=== PATIENT | female | born 1955 | race Asian ===

== ENCOUNTER 2021-03-04 10:22 | Outpatient (CLI) | payer MEDICARE, SELFPAY ==
--- NOTE | ~2021-03-04 | US_ITS ---
EXAMINATION: US retroperitoneal comp EXAM DATE: 03/04/2021 10:57 INDICATION: N28.9 - Disorder of kidney and ureter, unspecified. TECHNIQUE: Multiple grayscale and Doppler images of the kidneys were obtained (by a technologist who performed the scan) and subsequently reviewed. Correlation is made to CT abdomen pelvis 05/23/2010. FINDINGS: Right kidney: There is normal contour and echogenicity. It measures 10.3 x 3.9 x 4.5 centimeters. T here are no focal renal lesions identified. There is no hydronephrosis. Left kidney: There is normal contour and echogenicity. It measures 10.2 x 3.6 x 5.4 centimeters. The re is 7 mm hyperechoic focus in the left kidney, nonspecific. Appearance most consistent with small a ngiomyolipoma, with a 5 mm fat density region seen on prior CT from 2010 which may correlate to this. Therefore not likely clinically significant finding. There is no hydronephrosis. Bladder unremarkable. IMPRESSION: 1. No hydronephrosis. 2. Small incidental left renal hyperechoic focus appearance most consistent with small angiomyolipom a. Reviewed, dictated and finalized at location B. GER ETHICS IMPRESSION: 1. No hydronephrosis. 2. Small incidental left renal hyperechoic focus appearance most consistent wi th small angiomyolipoma.
--- NOTE | ~2021-03-04 | XR_ITS ---
EXAMINATION: XR abdomen/kub 1V DATE: 03/04/2021 11:07 INDICATION: Left lower quadrant abdominal pain. TECHNIQUE: A supine view of the abdomen on 2 radiographs was obtained. COMPARISON: CT dated 05/19/2010 FINDINGS: Small to moderate amount of gas and stool scattered throughout the colon. There is also small amount of gas within a few nondilated loops of small bowel. No suspicious calcification is in the abdomen or pelvis. Lung bases are clear with elevation right hemidiaphragm. Heart size is normal. Bones are unr emarkable. IMPRESSION: 1. Normal bowel gas pattern. No evident urolithiasis. Reviewed, dictated and finalized at location A. INE MAINTENANCE SERVICER
[2021-03-04 11:48] LABS: Basophils Absolute Auto 0.1 K/mm3 (0.0-0.1); Basophils Percent Auto 1.3 % (0.2-1.2); Eosinophils Absolute Auto 0.1 K/mm3 (0-0.3); Eosinophils Percent Auto 1.3 % (0-4.4); Hematocrit 42.7 % (37.0-47.0); Hemoglobin 14.6 g/dL (12.0-15.0); Immature Granulocyte Absolute 0.02 K/mm3 (0.00-0.031); Immature Granulocyte Percent A 0.4 % (0-0.5); Lymphocytes Absolute Auto 1.96 K/mm3 (0.9-3.2); Lymphocytes Percent Auto 41.1 % (18.3-44.2); Mean Corpuscular HGB Conc 34.2 g/dl (32-36); Mean Corpuscular Hemoglobin 29.9 pg (26-34); Mean Corpuscular Volume 87.5 fl (80-100); Mean Platelet Volume 9.4 fl (7.4-10.4); Monocytes Absolute Auto 0.3 K/mm3 (0.1-0.6); Monocytes Percent Auto 6.1 % (2.6-8.5); Neutrophils Absolute Auto 2.4 K/mm3 (1.3-6.7); Neutrophils Percent Auto 49.8 % (45.5-73.1); Platelet Count Result 310 k/mm3 (150-375); Red Blood Count 4.88 M/mm3 (4.2-5.4); Red Cell Distribution Width 12.4 % (11.5-14.5); White Blood Count 4.8 K/mm3 (4.5-10.0)
[2021-03-04 12:21] LABS: Alanine Aminotransferase 50 U/L (4-35); Albumin Level 4.7 g/dL (3.5-5.1); Alkaline Phosphatase 90 U/L (38-126); Anion Gap 7 mmol/L (8-16); Aspartate Amino Transferase 39 U/L (14-36); Bilirubin,Total 0.8 mg/dL (0.2-1.3); Blood Urea Nitrogen 14 mg/dL (7-17); Calcium 9.2 mg/dL (8.4-10.2); Carbon Dioxide 27 mmol/L (22-30); Chloride 105 mmol/L (98-107); Cholesterol 242 mg/dL (0-200); Estimated Glomerular Filt Rate > 60; Glucose 111 mg/dL (65-110); HDL Direct 48 mg/dL; Potassium 3.9 mmol/L (3.4-5.0); Sodium 139 mmol/L (137-145); Triglycerides 222 mg/dL (<150)
[2021-03-04 12:32] LABS: LDL Cholesterol Direct 129 mg/dL
[2021-03-06 12:04] LABS: Hemoglobin A1C 5.7 % (<5.7)
== END 2021-03-04 10:23 | disposition home or self-care (01) ==
PROVIDERS: PCP Nurse Practitioner Family; Visit Provider Nurse Practitioner Family
DX: E78.5 Hyperlipidemia, unspecified (principal); N18.9 Chronic kidney disease, unspecified; R10.32 Left lower quadrant pain; K59.01 Slow transit constipation
CPT/HCPCS: 36415; 74018; 76770; 80053; 80061; 83036; 85025

== ENCOUNTER 2022-05-12 12:17 | Emergency (ER) | payer MEDICARE, SELFPAY ==
--- NOTE | ~2022-05-12 | XR_ITS ---
Left wrist Technique: PA, oblique, lateral, and ulnar deviation views were obtained. Clinical History: Pain Findings: No acute fracture or dislocation is seen. Osseous alignment is anatomic. Joint spaces are p reserved. Soft tissues are unremarkable. Impression: Unremarkable left wrist radiographs. Reviewed, dictated and finalized at location . Impression: Unremarkable left wrist radiographs.
[2022-05-12 12:24] VITALS: BP 125/59; PULSE 77; RESP 18; TEMP 36.6; O2SAT 98
--- NOTE | 2022-05-12 12:24 | ED.UPPEXIN ---
HPI - Extremity Injury (Upper) General Chief Complaint: Extremity Injury, Upper Stated Complaint: INJURED L WRIST Time Seen by Provider: 05/12/22 12:24 Source: patient and RN notes reviewed History of Present Illness HPI narrative: Patient is 66-year-old female presents to Urgent Care with her spouse with complaints of left wrist pain and swelling. Patient states that she slipped up the hill yesterday while at home and catching herself with her left hand. Patient states she has used ice for the swelling. Patient is right-hand dominant. Denies any other acute complaints or injuries from the fall. No other acute complaints. No acute distress noted. Patient and spouse aware of the plan of care. Some parts of this dictation were generated by voice recognition software and may contain typographical and/or grammatical inaccuracies. Related Data Home Medications Medication Instructions Recorded Confirmed multivitamin 1 tablet PO DAILY 01/03/19 11/17/21 cholecalciferol (vitamin D3) 50 50 mcg PO DAILY 03/27/21 11/17/21 mcg (2,000 unit) capsule garlic 1,000 mg capsule 1,000 mg PO DAILY 03/27/21 11/17/21 ascorbate calcium (vitamin C) 500 500 mg PO DAILY 04/16/21 11/17/21 mg tablet biotin 5 mg capsule 5 mg PO DAILY 04/16/21 11/17/21 Allergies Allergy/AdvReac Type Severity Reaction Status Date / Time alcohol Allergy Intermediate swelling & Verified 11/16/21 14:44 redness Review of Systems Review of Systems: CONSTITUTIONAL: Denies fever, chills, or sweats. EYES: Denies visual changes, redness, or discharge. ENT: Denies rhinorrhea, congestion, sore throat, or otalgia. CARDIOVASCULAR: Denies chest pain, palpitations, or edema. RESPIRATORY: Denies cough or dyspnea. GASTROINTESTINAL: Denies abdominal pain, nausea, vomiting, or diarrhea. GENITOURINARY: Denies dysuria or hematuria. SKIN: Denies rash or itching. MUSCULOSKELETAL: Reports of left wrist pain and swelling NEUROLOGIC: Denies headache, numbness, or weakness. All other systems reviewed are negative, except as documented in HPI. 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 There is no relevant family history pertinent to the patient complaint. Exam Narrative: GENERAL: This is a well-nourished, well-developed patient, in no apparent distress. HEAD: normocephalic, atraumatic. EYES: PERRL. Sclera clear/white. Vision is grossly intact. EARS: External ears normal, NOSE: External nose normal with no obvious nasal discharge, nares without redness, no rhinorrhea. THROAT: Mucous membranes moist NECK: Neck supple, SKIN: warm, intact with no suspicious lesions or rash, good texture and turgor. NEURO: awake, alert, and oriented to person, place and time. There were no obvious focal neurologic abnormalities. EXTREMITIES: Uetj-jo-plifsqkz edema noted to the dorsal aspect of the left wrist on the ulnar aspect without ecchymosis or obvious deformity. Positive strong left radial pulse with capillary refill less than
== END 2022-05-12 12:53 | disposition home or self-care (01) ==
PROVIDERS: Emergency Provider Nurse Practitioner Family
DX: S63.502A Unspecified sprain of left wrist, initial encounter (principal); W01.0XXA Fall on same level from slipping, tripping and stumbling without subsequent striking against object, initial encounter; E78.5 Hyperlipidemia, unspecified; K76.0 Fatty (change of) liver, not elsewhere classified; E55.9 Vitamin D deficiency, unspecified
CPT/HCPCS: 73110; 99213; G0463

== ENCOUNTER 2023-03-17 08:16 | Outpatient (CLI) | payer OTHER, SELFPAY ==
--- NOTE | ~2023-03-17 | US_ITS ---
Limited Abdominal Sonogram: Real-time sonographic imaging of the right upper quadrant was performed. Clinical History: Abnormal blood findings Findings: The liver appears echogenic, with no evidence of mass lesion or bile duct dilatation. Main portal vein demonstrates normal direction of flow. The gallbladder is well distended, and appears no rmal with no evidence of gallstone or wall thickening. The common bile duct measures 4 mm. The visua lized pancreas, aorta, and IVC are unremarkable. Impression: Diffuse fatty infiltration of liver. Reviewed, dictated and finalized at location M. N SERVICES PROFESSIONAL Impression: Diffuse fatty infiltration of liver.
== END 2023-03-17 08:17 | disposition home or self-care (01) ==
PROVIDERS: PCP Family Medicine; Visit Provider Physician Assistant
DX: K76.0 Fatty (change of) liver, not elsewhere classified (principal); R79.89 Other specified abnormal findings of blood chemistry
CPT/HCPCS: 76705

== ENCOUNTER 2023-06-30 15:08 | Outpatient (CLI) | payer OTHER, SELFPAY ==
--- NOTE | ~2023-06-30 | XR_ITS ---
XR lumbar spine min 4V DATE: 06/30/2023 15:31 INDICATION: Hip pain on the left TECHNIQUE: AP, lateral, coned lateral lumbosacral and bilateral oblique views COMPARISON: None FINDINGS: Normal alignment of the lumbar spine. No fracture or bone destruction, spondylolysis or spo ndylolisthesis. Lumbar and lumbosacral interspaces are well preserved. There is slight degenerative s purring. The sacroiliac joints are intact. IMPRESSION: Slight degenerative spurring Reviewed, dictated and finalized at location B.
--- NOTE | ~2023-06-30 | XR_ITS ---
XR hip LT 2V w AP pelvis DATE: 06/30/2023 15:31 INDICATION: Left hip pain TECHNIQUE: AP pelvis. AP and lateral views of the left hip. COMPARISON: None FINDINGS: Normal alignment at the pubic symphysis and sacroiliac joints. No pelvic fracture or bone d estruction. Hip joint spaces are symmetric and well preserved. No fracture, dislocation, avascular ne crosis or bone destruction of the left hip. IMPRESSION: Negative Reviewed, dictated and finalized at location B. IMPRESSION: Negative
== END 2023-06-30 15:09 | disposition home or self-care (01) ==
LOC: ANHIMG 15:10
PROVIDERS: PCP Family Medicine; Visit Provider Family Medicine
DX: M47.896 Other spondylosis, lumbar region (principal); M25.552 Pain in left hip
CPT/HCPCS: 72110; 73502

== ENCOUNTER 2023-09-20 13:57 | Outpatient (CLI) | payer OTHER, SELFPAY ==
--- NOTE | ~2023-09-20 | DEXA_ITS ---
Bone Density Report Name: LOU QIU Age: 67 Sex: Female Ethnicity: White Date of : 1955 Indication: postmenopausal; screening for osteoporosis; history of glucocorticoids; Referring Provider: SHEKHAR LOGAN Study: Bone densitometry was performed. Exam Date: September 20, 2023 Accession number: [id number] Bone Density: Region BMD T-score Z-score Classification AP Spine(L1-L4) 0.862 -1.7 0.4 Osteopenia Femoral Neck (Left) 0.685 -1.5 0.3 Osteopenia Total Hip (Left) 0.919 -0.2 1.3 Normal Femoral Neck (Right) 0.695 -1.4 0.3 Osteopenia Total Hip (Right) 0.976 0.3 1.7 Normal Total Hip Mean 0.948 0.1 1.5 Normal World Health Organization criteria for BMD impression classify patients as: Normal (T-score at or above -1.0), Osteopenia (T-score between -1.0 and -2.5), or Osteoporosis (T-score at or below -2.5). 10-year Fracture Risk(1): Major Osteoporotic Fracture 15% Hip Fracture 2.2% Reported Risk Factors: [place] (), Neck BMD=0.685, BMI=27.6, glucocorticoids (1) FRAX(R) Version 3.08. Fracture probability calculated for an untreated patient. Fracture probability may be lower if the patient has received treatment. Clinical Information Provided by Patient: Has taken Glucocorticoids Has used the following medications: Vitamin D Patient maximum height was 62 Menopause Age: 52 No regular weight bearing exercise Drinks caffeinated beverages Onset of menses at age 13 Number of children 2 Impression: The patient has low bone mass, based on the Total Spine T-score. The patient has an estimated ten-year risk of hip fracture of 2.2% and an estimated ten-year risk of major fracture of 15%, based on the WHO FRAX algorithm. The patient has risk factors, including: history of glucocorticoid therapy. Discussion: BONE DENSITY IS LOW AT ONE OR MORE SKELETAL SITES. This patient's lowest T-score is low at one or more skeletal sites. It meets the World Health Organization's (WHO) criteria for ?low bone mass? (T-score between -1.0 and -2.5). The patient's 10-year risk of fracture as calculated by FRAX is less than the threshold where pharmacological therapy is recommended by the National Osteoporosis Foundation (NOF). However, all treatment decisions require clinical judgment and consideration of individual patient factors, including patient preferences, comorbidities, previous drug use, risk factors not captured in the FRAX model (e.g., frailty, falls, vitamin D deficiency, increased bone turnover, interval significant decline in bone density) and possible under or overestimation of fracture risk by FRAX. The patient should follow a healthful lifestyle (good nutrition with adequate calcium and vitamin D, and appropriate weight-bearing exercise). Follow-Up: Consider repeating this study
== END 2023-09-20 13:58 | disposition home or self-care (01) ==
LOC: ANHIMG 13:58
PROVIDERS: PCP Family Medicine; Visit Provider Family Medicine
DX: M85.89 Other specified disorders of bone density and structure, multiple sites (principal); Z78.0 Asymptomatic menopausal state; Z13.820 Encounter for screening for osteoporosis
CPT/HCPCS: 77080

== ENCOUNTER 2023-10-13 14:13 | Outpatient (CLI) | payer OTHER, SELFPAY ==
[2023-10-13 14:42] LABS: Basophils Absolute Auto 0.1 K/mm3 (0.0-0.1); Basophils Percent Auto 1.1 % (0.2-1.2); Eosinophils Absolute Auto 0.1 K/mm3 (0-0.3); Eosinophils Percent Auto 2.6 % (0-4.4); Hematocrit 41.3 % (37.0-47.0); Hemoglobin 13.9 g/dL (12.0-15.0); Immature Granulocyte Absolute 0.02 K/mm3 (0.00-0.031); Immature Granulocyte Percent A 0.4 % (0-0.5); Lymphocytes Absolute Auto 1.78 K/mm3 (0.9-3.2); Lymphocytes Percent Auto 39.2 % (18.3-44.2); Mean Corpuscular HGB Conc 33.7 g/dl (32-36); Mean Corpuscular Volume 89.2 fl (80-100); Mean Platelet Volume 9.2 fl (7.4-10.4); Monocytes Absolute Auto 0.4 K/mm3 (0.1-0.6); Monocytes Percent Auto 8.6 % (2.6-8.5); Neutrophils Absolute Auto 2.2 K/mm3 (1.3-6.7); Neutrophils Percent Auto 48.1 % (45.5-73.1); Platelet Count Result 263 k/mm3 (150-375); Red Blood Count 4.63 M/mm3 (4.2-5.4); Red Cell Distribution Width 12.5 % (11.5-14.5); White Blood Count 4.5 K/mm3 (4.5-10.0)
[2023-10-13 16:28] LABS: Iron 146 ug/dL (37-170)
[2023-10-13 16:32] LABS: Alanine Aminotransferase 143 U/L (6-35); Albumin Level 4.3 g/dL (3.5-5.1); Alkaline Phosphatase 71 U/L (38-126); Anion Gap 10 mmol/L (4-12); Aspartate Amino Transferase 110 U/L (14-36); Bilirubin,Total 0.7 mg/dL (0.2-1.3); Blood Urea Nitrogen 14 mg/dL (7-17); Calcium 8.7 mg/dL (8.4-10.2); Carbon Dioxide 26 mmol/L (22-30); Chloride 105 mmol/L (98-107); Estimated Glomerular Filt Rate > 60; Glucose 124 mg/dL (65-110); Potassium 3.7 mmol/L (3.4-5.0); Sodium 141 mmol/L (137-145)
[2023-10-13 16:38] LABS: Percent Iron Saturation 55 % (20-50)
== END 2023-10-13 14:14 | disposition home or self-care (01) ==
LOC: ANHLAB 14:20
PROVIDERS: PCP Family Medicine; Visit Provider Internal Medicine Hematology & Oncology
DX: E83.19 Other disorders of iron metabolism (principal)
CPT/HCPCS: 36415; 80053; 81256; 82728; 83540; 83550; 85025

== ENCOUNTER 2024-01-11 07:53 | Outpatient (CLI) | payer OTHER, SELFPAY ==
--- NOTE | ~2024-01-11 | US_ITS ---
COMPLETE ABDOMINAL ULTRASOUND Ordering provider: Mayank Allen MD History: . IRON OVERLOAD . Comparison: None. FINDINGS: LIVER: Normal size measuring 13.5 cm with increased echogenicity suggestive of fat infiltration.. No focal hepatic lesions or perihepatic fluid collections are identified. Normal portal vein flow. GALLBLADDER: Unremarkable. No evidence for stones, sludge, gallbladder wall thickening or pericholecy stic fluid collections. Wall thickness is 3.3 mm. A negative sonographic Babb's sign was noted. BILIARY DUCTS: No evidence for intra or extrahepatic biliary dilation. Common bile duct measures 3.3 mm in diameter which is within normal limits. PANCREAS: Partially visualized. Normal echotexture and size. SPLEEN: Normal size, echotexture and contour and measures 9.5 cm in length. KIDNEYS: Right measures 9.5x 4.3x 5.1 cm in length and the left 9.8x 5.1x 5.2 cm in length. There is no evidence for hydronephrosis, solid renal mass, renal calculi or perinephric fluid collections. No renal cysts. Echogenic foci with twinkle artifacts are seen in the left kidney UPPER ABDOMINAL AORTA: Normal in caliber. Proximal measures 2.3 cm. Mid measures 1.7 cm. Distal measu res 1.7 cm. Right iliac measures 1 cm. Left iliac measures 0.8 cm. IVC: Patent. FREE FLUID: None. IMPRESSION: Fat infiltration of the liver. Echogenic foci with twinkle artifact in the left kidney suggestive of stones. Otherwise, Unremarkable complete ultrasound of the abdomen. Reviewed, dictated and finalized at location A. LE DATABASE CONSULTANT IMPRESSION: Fat infiltration of the liver. Echogenic foci with twinkle artifact in the left kidney suggestive of stones. Otherwise, Unremarkable complete ultrasound of th e abdomen.
== END 2024-01-11 07:54 | disposition home or self-care (01) ==
PROVIDERS: PCP Family Medicine; Visit Provider Internal Medicine Hematology & Oncology
DX: E83.19 Other disorders of iron metabolism (principal); R78.9 Finding of unspecified substance, not normally found in blood; K76.0 Fatty (change of) liver, not elsewhere classified; R93.422 Abnormal radiologic findings on diagnostic imaging of left kidney
CPT/HCPCS: 76700

== ENCOUNTER 2024-04-26 15:29 | Outpatient (CLI) | payer OTHER, SELFPAY ==
[2024-04-26 15:50] LABS: Hematocrit 42.2 % (37.0-47.0); Hemoglobin 14.4 g/dL (12.0-15.0); Mean Corpuscular HGB Conc 34.1 g/dl (32-36); Mean Corpuscular Hemoglobin 29.9 pg (26-34); Mean Corpuscular Volume 87.6 fl (80-100); Mean Platelet Volume 9.4 fl (7.4-10.4); Platelet Count Result 256 k/mm3 (150-375); Red Blood Count 4.82 M/mm3 (4.2-5.4); Red Cell Distribution Width 12.4 % (11.5-14.5); White Blood Count 4.5 K/mm3 (4.5-10.0)
[2024-04-26 16:38] LABS: Alanine Aminotransferase 123 U/L (6-35); Albumin Level 4.3 g/dL (3.5-5.1); Alkaline Phosphatase 79 U/L (38-126); Anion Gap 11 mmol/L (4-12); Aspartate Amino Transferase 80 U/L (14-36); Bilirubin,Total 0.6 mg/dL (0.2-1.3); Blood Urea Nitrogen 18 mg/dL (7-17); Calcium 8.8 mg/dL (8.4-10.2); Carbon Dioxide 24 mmol/L (22-30); Chloride 107 mmol/L (98-107); Estimated Glomerular Filt Rate > 60; Glucose 118 mg/dL (65-110); Potassium 3.9 mmol/L (3.4-5.0); Sodium 142 mmol/L (137-145)
[2024-04-26 16:45] LABS: Iron 147 ug/dL (37-170)
[2024-04-26 16:56] LABS: Percent Iron Saturation 52 % (20-50)
--- OUTSIDE RECORDS SUMMARY | 2024-04-26 17:14 | XMS_ITS | Encounter Summary ---
Author Organization [facility] Address [address] [place] [address] Care Team Providers Care Rotary Saw Operator Name Role Phone Lisa Ortiz MD Primary Care Provider [phone] Encounter Details Date Type Department Care Team (Late st Contact Info) Description 04/25/2024 External Device Data STL ABSTRACTION Provider, Abstract NO ADDRESS ON FILE Social History Tobacco Use Types Packs/Day Years Used Date Smoking Tobacco: Never Smokeless Tobacco: Never Alcohol Use Standard Drinks/Week Comments Never 0 (1 standard drink = 0.6 oz pur e alcohol) Comments Unknown Sex and Gender Information Value Date Recorded Sex Assigned at Not on file Legal Sex Female 12:07 PM CDT Gender Identity Not on file Sexual Orientation Not on file documented as of this encounter Plan of Treatment Upcoming Encounters Date Type Department Care Team (Late st Contact Info) Description 05/03/2024 11:30 AM CDT Office Visit [facility] Oncology and Hematology - [place] [address] [place] [address] [facility] [address] [place] [address] Mayank Allen MD [address] [facility] [address] [place] [address] documented as of this encounter Visit Diagnoses Not on filedocumented in this encounter Care Teams Rotary Saw Operator Relationship Specialty Start Date End Date Lisa Ortiz MD [address] [place] [phone] PCP - General Family Practice 09/29/23 documented as of this encounter
--- OUTSIDE RECORDS SUMMARY | 2024-04-26 17:14 | XMS_ITS | Continuity of Care Document ---
Author Organization [facility] Address [address] [place] [address] Phone Care Team Providers Care International Project Manager Name Role Phone Erickson OD, Adrian Unavailable Unavailable Procedures Procedure Date Office/outpatient Visit, [facility] Advance Directives Directive Yes / No Effective Date File Name No Information Encounters Encounter Description Practice Location Reason(s) For Visit Diagnoses Date Provider Providers Copied on Encounter Office/outpat ient Visit, [facility], [address], [place], [place], [id number], [place] tel:[phone] [facility] No Information 6-201 0 Erickson OD Adrian. [address] , [address], [place], [address], [place]. tel:[phone] Family History Family Member Type Diagnosis Age At Onset No Information Payers Payer name Insurance type Covered libertarian ID Authoriza tivalente(s) BCBS [place] Out Of State [id number] Social History Type Description Quantity Date Captured [...]
--- OUTSIDE RECORDS SUMMARY | 2024-04-26 17:14 | XMS_ITS | Encounter Summary ---
Author Organization [facility] Address [address] [place] [address] Care Team Providers Care Network Support Analyst Name Role Phone Lisa Ortiz MD Primary Care Provider [phone] Encounter Details Date Type Department Care Team (Late st Contact Info) Description 04/24/2024 External Device Data STL ABSTRACTION Provider, Abstract [...] Description 05/03/2024 11:30 AM CDT Office Visit [facility] Oncology and Hematology - [place] [address] [place] [address] [facility] [address] [place] [address] [place] [address] [place] [address] [address] [place] [address] documented as of this encounter Visit Diagnoses Not on filedocumented in this encounter Care Teams Network Support Analyst Relationship Specialty Start Date End Date Lisa Ortiz MD [address] [place] [phone] PCP - General Family Practice 09/29/23 documented as of this encounter
--- OUTSIDE RECORDS SUMMARY | 2024-04-26 17:14 | XMS_ITS | Clinical Summary ---
Author Organization [facility] Address [address] [place] [address] Care Team Providers Care Emergency Medical Tech Name Role Phone Lisa Ortiz MD Primary Care Provider [phone] Allergies No known active allergies Medications cetirizine (ZyrTEC) 1 mg/mL Solution Take 1 mg by mouth daily. Active Active Problems No known active problems Encounters Date Type Department Care Team Description 04/25/2024 External Device Data STL ABSTRACTION Provider, Abstract 04/24/2024 External Device Data STL ABSTRACTION Provider, Abstract 04/21/2024 External Device Data STL ABSTRACTION Provider, Abstract 04/20/2024 External Device Data STL ABSTRACTION Provider, Abstract 04/18/2024 External Device Data STL ABSTRACTION Provider, Abstract 04/04/2024 External Device Data STL ABSTRACTION Provider, Abstract 04/04/2024 External Device Data STL ABSTRACTION Provider, Abstract 03/07/2024 External Device Data STL ABSTRACTION Provider, Abstract 03/07/2024 External Device Data STL ABSTRACTION Provider, Abstract 02/28/2024 External Device Data STL ABSTRACTION Provider, Abstract from Last 3 Months Family History Medical History Relation Name Comments No Known Problems Brother 1 Gallbladder Stones Brother 2 No Known Problems Daughter Lung Cancer Father Cancer - Other Mother No Known Problems Sister No Known Problems Son Relation Name Status Comments Brother 1 Alive Brother 2 Alive Daughter Alive Father Mother Sister Alive Son Alive Social History Tobacco Use Types Packs/Day Years Used Date Smoking Tobacco: Never Smokeless Tobacco: Never Tobacco Cessation:Counseling Given: Not Answered Alcohol Use Standard Drinks/Week Comments Never 0 (1 standard drink = 0.6 oz pur e alcohol) Comments Unknown Sex and Gender Information Value Date Recorded Sex Assigned at Not on file Legal Sex Female 12:07 PM CDT Gender Identity Not on file Sexual Orientation Not on file Last Filed Vital Signs Vital Sign Reading Time Taken Comments Blood Pressure 135/62 11/10/2023 1:33 PM CDT Pulse 65 11/10/2023 1:33 PM CDT Temperature 36.6 C (97.8 F) 11/10/2023 1:33 PM CDT Respiratory Rate 14 11/10/2023 1:33 PM CDT Oxygen Saturation 96% 11/10/2023 1:33 PM CDT Inhaled Oxygen Concentration - - Weight 69.4 kg (153 lb) 11/10/2023 1:33 PM CDT Height 154.9 cm (5' 1 ) 10/13/2023 1:24 PM CDT Body Mass Index 28.91 10/13/2023 1:24 PM CDT Plan of Treatment Upcoming Encounters Date Type Department Care Team (Late st Contact Info) Description 05/03/2024 11:30 AM CDT Office Visit [facility] Oncology and Hematology - [place] [address] [place] [address] [facility] [address] [place] [address] Mayank Allen MD [address] [facility] [address] [place] [address] Health Maintenance Due Date Last Done Comments Pre-Diabetes and Diabetes Screening 1955 DTAP/TDAP/TD VACCINES (1 - Tdap) 1973 BREAST CANCER SCREENING 1994 COLORECTAL SCREENING 09/29/1999 Colorectal Cancer Screening 09/29/1999 FIT-DNA Q 3 years 09/29/1999 FIT/FOBT Q 1 year 09/29/1999 Flex Sig/CT Colonography Q 5 years 09/29/1999 PNEUMOCOCCAL VACCINE 50+ YEARS (1 of 1 - PCV) 09/29/19 05 ZOSTER VACCINE (1 of 2) 2004 OSTEOPOROSIS SCREENING 09/29/2019 INFLUENZA VACCINE (#1) 2023 [place] Prev entative Visit/Annual Wellness Visit 02/15/2024 RSV VACCINE (60+ or ) (1 - 1-dose 75+ series) 2029 Insurance [facility] MCR Care Teams Emergency Medical Tech Relationship Specialty Start Date End Date Lisa Ortiz MD [address] [place] [phone] PCP - General Family Practice 09/29/23
[2024-04-26 17:40] LABS: Hepatitis B Surface Antigen Negative (Negative)
[2024-04-26 17:45] LABS: HAV RESULT Negative (Negative); Hepatitis B Core IgM Result Negative (Negative)
[2024-04-26 17:57] LABS: Hepatitis C Virus Antibody Negative (Negative)
== END 2024-04-26 15:30 | disposition home or self-care (01) ==
LOC: ANHLAB 15:30
PROVIDERS: PCP Family Medicine; Visit Provider Internal Medicine Hematology & Oncology
DX: R79.89 Other specified abnormal findings of blood chemistry (principal); E83.19 Other disorders of iron metabolism; R74.01 Elevation of levels of liver transaminase levels
CPT/HCPCS: 36415; 80053; 80074; 82728; 83540; 83550; 85027

== ENCOUNTER 2024-06-07 12:49 | Outpatient (CLI) | payer OTHER, SELFPAY ==
--- NOTE | ~2024-06-07 | MM_ITS ---
EXAMINATION: MM screening boby BI w albert HISTORY: Screening TECHNIQUE: Craniocaudal and mediolateral oblique 3-D tomosynthesis images were obtained and synthetic 2-D images were generated. CAD analysis was submitted and interpreted. COMPARISON: 09/15/2016 BREAST PARENCHYMAL COMPOSITION: Not dense: There are scattered areas of fibroglandular density. FINDINGS: There is no evidence of suspicious mass, calcification, or architectural distortion to sugg est malignancy in either breast. There has been no suspicious interval change. IMPRESSION: 1. No mammographic evidence of malignancy. 2. Recommend routine screening mammography in one year. BI-RADS Category 1: Negative Reviewed, dictated and finalized at location A.
== END 2024-06-07 12:50 | disposition home or self-care (01) ==
LOC: MICIMG 12:50
PROVIDERS: PCP Family Medicine; Visit Provider Family Medicine
DX: Z12.31 Encounter for screening mammogram for malignant neoplasm of breast (principal)
CPT/HCPCS: 77063; 77067

== ENCOUNTER 2024-08-02 13:28 | Outpatient (CLI) | payer OTHER, SELFPAY ==
--- OUTSIDE RECORDS SUMMARY | 2024-08-02 13:44 | XMS_ITS | Continuity of Care Document ---
Author Organization [facility] Address [address] [place] [address] Phone Care Team Providers Care Cloth Burler Name Role Phone Erickson OD, Adrian Unavailable Unavailable Procedures Procedure Date Office/outpatient Visit, [facility] Advance Directives Directive Yes / No Effective Date File Name No Information Encounters Encounter Description Practice Location Reason(s) For Visit Diagnoses Date Provider Providers Copied on Encounter Office/outpat ient Visit, [facility], [address], [place], [place], [address], [place] tel:[phone] [facility] No Information 6-201 0 Erickson OD Adrian. [address] , [address], [place], [address], [place]. tel:[phone] Family History Family Member Type Diagnosis Age At Onset No Information Payers Payer name Insurance type Covered democrat ID Authoriza tivalente(s) BCBS [place] Out Of [place] [id number] Social History Type Description Quantity Date Captured [...]
[2024-08-02 15:18] LABS: Basophils Absolute Auto 0.1 K/mm3 (0.0-0.1); Basophils Percent Auto 1.1 % (0.2-1.2); Eosinophils Absolute Auto 0.1 K/mm3 (0-0.3); Eosinophils Percent Auto 3.1 % (0-4.4); Hemoglobin 14.6 g/dL (12.0-15.0); Lymphocytes Absolute Auto 1.77 K/mm3 (0.9-3.2); Lymphocytes Percent Auto 38.9 % (18.3-44.2); Mean Corpuscular HGB Conc 34.8 g/dl (32-36); Mean Corpuscular Hemoglobin 30.6 pg (26-34); Mean Corpuscular Volume 88.1 fl (80-100); Monocytes Absolute Auto 0.3 K/mm3 (0.1-0.6); Neutrophils Absolute Auto 2.3 K/mm3 (1.3-6.7); Neutrophils Percent Auto 49.9 % (45.5-73.1); Platelet Count Result 270 k/mm3 (150-375); Red Blood Count 4.77 M/mm3 (4.2-5.4); Red Cell Distribution Width 12.3 % (11.5-14.5); White Blood Count 4.6 K/mm3 (4.5-10.0)
[2024-08-02 16:53] LABS: Alanine Aminotransferase 117 U/L (6-35); Albumin Level 4.4 g/dL (3.5-5.1); Alkaline Phosphatase 78 U/L (38-126); Anion Gap 10 mmol/L (4-12); Aspartate Amino Transferase 102 U/L (14-36); Bilirubin,Total 0.9 mg/dL (0.2-1.3); Blood Urea Nitrogen 17 mg/dL (7-17); Calcium 9.5 mg/dL (8.4-10.2); Carbon Dioxide 25 mmol/L (22-30); Chloride 106 mmol/L (98-107); Estimated Glomerular Filt Rate > 60; Glucose 147 mg/dL (65-110); Potassium 3.8 mmol/L (3.4-5.0); Sodium 141 mmol/L (137-145); Total Protein 7.6 g/dL (6.3-8.2)
[2024-08-02 16:54] LABS: Iron 164 ug/dL (37-170)
[2024-08-02 17:05] LABS: Percent Iron Saturation 60 % (20-50)
== END 2024-08-02 13:29 | disposition home or self-care (01) ==
LOC: ANHLAB 13:29
PROVIDERS: PCP Family Medicine; Visit Provider Internal Medicine Hematology & Oncology
DX: E83.19 Other disorders of iron metabolism (principal)
CPT/HCPCS: 36415; 80053; 82728; 83540; 83550; 85025

== ENCOUNTER 2024-08-23 11:41 | Outpatient (CLI) | payer OTHER, SELFPAY ==
--- OUTSIDE RECORDS SUMMARY | 2024-08-23 11:44 | XMS_ITS | Clinical Summary ---
[facility] Address [address] [place] [address] Care Team Providers Care Beer Cooler Name Role Phone Lisa Ortiz MD Primary Care Provider [phone] Allergies No known active allergies Medications cetirizine (ZyrTEC) 1 mg/mL Solution Take 1 mg by mouth daily. Active rosuvastatin (CRESTOR) 5 mg tablet Take 1 Tablet by mouth daily. 04/02/2024 Active Active Problems No known active problems Encounters Date Type Department Care Team Description 08/23/2024 Orders Only [facility] - [place] [address] [place] [address] Mayank Allen MD Iron overload (Primary Dx) 08/13/2024 Orders Only [facility] [place] [facility] [address] [place] [address] Mayank Allen MD 08/09/2024 1:15 PM CDT Office Visit [facility] [place] [address] [address] [place] [address] Mayank Allen MD Iron overload (Primary Dx) 08/07/2024 External Device Data STL ABSTRACTION Provider, Abstract 08/07/2024 External Device Data STL ABSTRACTION Provider, Abstract 07/10/2024 External Device Data STL ABSTRACTION Provider, Abstract 07/04/2024 External Device Data STL ABSTRACTION Provider, Abstract 07/03/2024 External Device Data STL ABSTRACTION Provider, Abstract [...] Sign Reading Time Taken Comments Blood Pressure 124/73 08/09/2024 1:17 PM CDT Pulse 64 08/09/2024 1:16 PM CDT Temperature 36.2 C (97.1 F) 08/09/2024 1:16 PM CDT Respiratory Rate 15 08/09/2024 1:16 PM CDT Oxygen Saturation 96% 08/09/2024 1:16 PM CDT Inhaled Oxygen Concentration - - Weight 68.3 kg (150 lb 9.6 oz) 08/09/2024 1:16 P M CDT Height 154.9 cm (5' 1) 10/13/2023 1:24 PM CDT Body Mass Index 28.46 10/13/2023 1:24 PM CDT Plan of Treatment Upcoming Encounters Date Type Department Care Team (Late st Contact Info) Description 11/22/2024 2:45 PM CDT Office Visit [facility] - [place] [address] [facility] [address] [place] [address] Mayank Allen MD [address] [facility] [address] [place] [address] Health Maintenance Due Date Last [...] (1 of 2) 2004 OSTEOPOROSIS SCREENING 09/29/2019 Medicare [place] ([place]) Prev entative Visit/Annual Wellness Visit 02/15/2024 INFLUENZA VACCINE (#1) 2024 RSV VACCINE (60+ or ) (1 - 1-dose 75+ series) 2029 Procedures Procedure Name Priority Date/Time Associated Diagnosis Comments COMPREHENSIVE METABOLIC PANEL Routine 08/02/2024 4:01 PM CDT CBC WITH DIFFERENTIAL Routine 08/02/2024 3:57 PM CDT from Last 3 Months Results * COMPREHENSIVE METABOLIC PANEL (08/02/2024 4:01 PM CDT) Blood us Mayank Allen MD CHEMISTRY ORDERABLES Final Resu lt * CBC WITH DIFFERENTIAL (08/02/2024 3:57 PM CDT) Blood us Mayank Allen MD HEMATOLOGY ORDERABLES Final Res ult from Last 3 Months [place] [facility] [place] Address: [place] [address] Care Teams Beer Cooler Relationship Specialty Start Date End Date Lisa Ortiz MD [address] [place] [phone] PCP - General Family Practice 09/29/23
--- OUTSIDE RECORDS SUMMARY | 2024-08-23 11:44 | XMS_ITS | Continuity of Care Document ---
Author Organization [facility] Address [address] [place] [address] Phone Care Team Providers Care Crm Functional Analyst Name Role Phone Erickson OD, Adrian Unavailable Unavailable Procedures Procedure Date Office/outpatient Visit, [facility] Advance Directives Directive Yes / No Effective Date File Name No Information Encounters Encounter Description Practice Location Reason(s) For Visit Diagnoses Date Provider Providers Copied on Encounter Office/outpat ient Visit, [facility], [address], [place], [place], [id number], [place] tel:[phone] [facility] No Information [phone] 0 Erickson OD Adrian. [address] , [address], [place], [address], [place]. tel:[phone] Family History Family Member Type Diagnosis Age At Onset No Information Payers Payer name Insurance type Covered alliance party ID Authoriza tivalente(s) [place]BS [place] [id number] Social History Type Description Quantity Date Captured [...]
--- OUTSIDE RECORDS SUMMARY | 2024-08-23 11:44 | XMS_ITS | Encounter Summary ---
Author Organization [facility] [employer] [facility] Address [address] [place] [address] Care Team Providers Care Tabulating Clerk Name Role Phone Lisa Ortiz MD Primary Care Provider [phone] Encounter Details Date Type Department Care Team ([facility] Contact Info) Description 08/23/2024 Orders Only [facility] [place] [address] [place] [address] Mayank Allen MD [address] [place], [place] [address] [address] [place] [address] Iron overload (Primary Dx) Social History Tobacco Use Types Packs/Day Years [...] Encounters Date Type Department Care Team (Late Contact Info) Description 11/22/2024 2:45 PM CDT Office Visit [facility] - [place] [address] [place] [address] Mayank Allen MD [address] [place] [address] [address] [place] [phone] Scheduled Orders Name Type Priority Associated Diagnoses Orde r Schedule CBC WITH DIFFERENTIAL Lab Stat Iron overload Expected: 08/23/2024, Expires: 08/23/2025 IRON, TIBC, AND PERCENT SATURATION Lab Stat Iron overload Expected: 08/23/2024, Expires: 08/23/2025 FERRITIN Lab Stat Iron overload Expected: 08/23/2024, Expires: 08/23/2025 COMPREHENSIVE METABOLIC PANEL Lab Stat Iron overload Expected: 08/23/2024, Expires: 08/23/2025 documented as of this encounter Visit Diagnoses Diagnosis Iron overload- Primary Other disorders of iron metabolism documented in this encounter Care Teams Tabulating Clerk Relationship Specialty Start Date End Date Lisa Ortiz MD [address] [place] [phone] PCP - General Family Practice 09/29/23 documented as of this encounter
[2024-08-23 12:09] LABS: Hematocrit 42.5 % (37.0-47.0); Hemoglobin 14.6 g/dL (12.0-15.0); Immature Granulocyte Percent A 0.4 % (0-0.5); Lymphocytes Absolute Auto 1.73 K/mm3 (0.9-3.2); Mean Corpuscular HGB Conc 34.4 g/dl (32-36); Mean Corpuscular Hemoglobin 30.0 pg (26-34); Mean Corpuscular Volume 87.4 fl (80-100); Nucleated Red Blood Cells Absolute Auto 0.000 K/mm3 (0.0-0.012); Nucleated Red Blood Cells Perc 0.0 % (0.0-0.2); Platelet Count Result 265 k/mm3 (150-375); Red Blood Count 4.86 M/mm3 (4.2-5.4); White Blood Count 4.6 K/mm3 (4.5-10.0)
[2024-08-23 15:22] LABS: Alanine Aminotransferase 102 U/L (6-35); Albumin Level 4.4 g/dL (3.5-5.1); Alkaline Phosphatase 75 U/L (38-126); Anion Gap 10 mmol/L (4-12); Aspartate Amino Transferase 95 U/L (14-36); Bilirubin,Total 0.7 mg/dL (0.2-1.3); Blood Urea Nitrogen 12 mg/dL (7-17); Calcium 9.4 mg/dL (8.4-10.2); Carbon Dioxide 25 mmol/L (22-30); Chloride 107 mmol/L (98-107); Estimated Glomerular Filt Rate > 60; Glucose 136 mg/dL (65-110); Potassium 3.3 mmol/L (3.4-5.0); Sodium 142 mmol/L (137-145); Total Protein 7.6 g/dL (6.3-8.2)
[2024-08-23 15:54] LABS: Iron 139 ug/dL (37-170)
[2024-08-23 16:04] LABS: Percent Iron Saturation 50 % (20-50)
[2024-08-23 16:30] LABS: Ferritin 376.00 ng/mL (11.1-264)
== END 2024-08-23 11:42 | disposition home or self-care (01) ==
LOC: ANHLAB 11:42
PROVIDERS: PCP Family Medicine; Visit Provider Internal Medicine Hematology & Oncology
DX: E83.19 Other disorders of iron metabolism (principal)
CPT/HCPCS: 36415; 80053; 82728; 83540; 83550; 85025

== ENCOUNTER 2024-11-16 07:44 | Outpatient (CLI) | payer OTHER, SELFPAY ==
--- OUTSIDE RECORDS SUMMARY | 2009-08-09 05:00 | XMS_ITS | Continuity of Care Document ---
Author Organization [facility] Address [address] [place] [address] Phone Care Team Providers Care Railroad Car Loader Name Role Phone Erickson OD, Adrian Unavailable Unavailable Procedures Procedure Date Office/outpatient Visit, [facility] Advance Directives Directive Yes / No Effective Date File Name No Information Encounters Encounter Description Practice Location Reason(s) For Visit Diagnoses Date Provider Providers Copied on Encounter Office/outpat ient Visit, [facility], [address], [place], [place], [id number], [place] tel:[phone] [facility] No Information [phone] Erickson OD Adrian. [address] , [address], [place], [address], [place]. tel:[phone] Family History Family Member Type Diagnosis Age At Onset No Information Payers Payer name Insurance type Covered alliance party ID Authoriza tivalente(s) BCBS [place] Out Of [place] [id number] Social History Type Description Quantity Date Captured Comments Sex Female Smoking Status No Information Chief Complaint And Reason For Visit No Information Reason For Referral Reason For Referral No Information History Of Present Illness Encounter Date Complaint History Of Prese nt Illness No Information Functional Status Date Functional Assessmen t No Information Instructions Date Instruction Additional Infor mation No Information Assessments Type Assessment Date No Information Patient Care Teams Name Effective Dates (start - stop) Status Members No Information
--- NOTE | ~2024-11-16 | MR_ITS ---
EXAMINATION: MR abdomen wo/w con DATE: 11/16/2024 08:59 INDICATION: Other disorders of iron metabolism. TECHNIQUE: Magnetic resonance imaging (MRI) of the abdomen was performed without and with 14 mL MultiHance intravenous contrast. COMPARISON: Ultrasound abdomen 01/11/2024 FINDINGS: There is diffuse hepatic steatosis. There are cysts in the liver measuring up to 5 mm. The spleen, gallbladder, pancreas, and adrenal glands are normal. There are cysts in the kidneys measuring up to 1.7 cm on the left. There are no dilated loops of bowel. There are no pathologically enlarged lymph nodes. There is no free intraperitoneal fluid. IMPRESSION: 1. Diffuse hepatic steatosis. Reviewed, dictated and finalized at location E.
--- OUTSIDE RECORDS SUMMARY | 2024-11-16 07:49 | XMS_ITS | Clinical Summary ---
Author Organization [facility] Address [address] [facility] [place] [address] Care Team Providers Care Experimental Plastics Fabricator Name Role Phone Lisa Ortiz MD Primary Care Provider [phone] Allergies No known active allergies Medications cetirizine (ZyrTEC) 1 mg/mL Solution Take 1 mg by mouth daily. Active rosuvastatin (CRESTOR) 5 mg tablet Take 1 Tablet by mouth daily. 04/02/2024 Active Active Problems No known active problems Encounters Date Type Department Care Team Description 10/30/2024 External Device Data STL ABSTRACTION Provider, Abstract 10/30/2024 External Device Data STL ABSTRACTION Provider, Abstract 10/23/2024 External Device Data STL ABSTRACTION Provider, Abstract 09/11/2024 External Device Data STL ABSTRACTION Provider, Abstract 09/11/2024 External Device Data STL ABSTRACTION Provider, Abstract 09/11/2024 External Device Data STL ABSTRACTION Provider, Abstract 08/29/2024 External Device Data STL ABSTRACTION Provider, Abstract 08/28/2024 External Device Data STL ABSTRACTION Provider, Abstract 08/23/2024 Orders Only [facility] - [place] [address] [facility] [place] [phone] Mayank Allen MD Iron overload (Primary Dx) from Last 3 Months Family History Medical [...] Description 11/22/2024 2:45 PM CDT Office Visit [facility] - [place] [address] [facility] [address] [place] [address] Mayank Allen MD [address] [facility] [address] [place] [address] Health Maintenance Due Date Last [...] 2) 2004 OSTEOPOROSIS SCREENING 09/29/2019 [place] Prev entative Visit/Annual Wellness Visit 02/15/2024 INFLUENZA VACCINE (#1) 2024 RSV VACCINE (60+ or ) (1 - 1-dose 75+ series) 2029 Insurance [facility] MCR [facility] [place] Address: [place] [address] Care Teams Experimental Plastics Fabricator Relationship Specialty Start Date End Date Lisa Ortiz MD [address] [place] [phone] PCP - General Family Practice 09/29/23
== END 2024-11-16 07:45 | disposition home or self-care (01) ==
PROVIDERS: PCP Family Medicine; Visit Provider Nurse Practitioner Family
DX: E83.19 Other disorders of iron metabolism (principal); K76.0 Fatty (change of) liver, not elsewhere classified; R74.8 Abnormal levels of other serum enzymes
CPT/HCPCS: 74183; A9577

== ENCOUNTER 2024-12-13 01:35 | Day surgery (SDC) | payer OTHER, SELFPAY ==
[2024-12-03 13:44] VITALS: BMI 27.9
--- OUTSIDE RECORDS SUMMARY | 2024-12-13 01:38 | XMS_ITS | Clinical Summary ---
Author Organization [facility] Brendon chavez Brayan Address [address] [place] [address] Care Team Providers Care Heat Transfer Technician Name Role Phone Lisa Ortiz MD Primary Care Provider [phone] Allergies No known active allergies Medications cetirizine (ZyrTEC) 1 mg/mL Solution Take 1 mg by mouth daily. Active rosuvastatin (CRESTOR) 5 mg tablet Take 1 Tablet by mouth daily. 04/02/2024 Active Active Problems No known active problems Encounters Date Type Department Care Team Description 12/05/2024 External Device Data STL ABSTRACTION Provider, Abstract 12/04/2024 External Device Data STL ABSTRACTION Provider, Abstract 11/22/2024 2:45 PM CDT Office Visit [facility] [address] [place] [address] Mayank Allen MD Iron overload (Primary Dx) 11/22/2024 Orders Only [facility] [address] [place] [address] Mayank Allen MD 10/30/2024 External Device Data STL ABSTRACTION Provider, [...] Sign Reading Time Taken Comments Blood Pressure 139/64 11/22/2024 2:33 PM CDT Pulse 63 11/22/2024 2:33 PM CDT Temperature 36.3 C (97.3 F) 11/22/2024 2:33 PM CDT Respiratory Rate 16 11/22/2024 2:33 PM CDT Oxygen Saturation 97% 11/22/2024 2:33 PM CDT Inhaled Oxygen Concentration - - Weight 68.2 kg (150 lb 6.4 oz) 11/22/2024 2:33 P M CDT Height 154.9 cm (5' 1) 10/13/2023 1:24 PM CDT Body Mass Index 28.42 10/13/2023 1:24 PM CDT Plan of Treatment Upcoming Encounters Date Type Department Care Team (Late st Contact Info) Description 03/07/2025 2:45 PM BINDER LAYER Office Visit [facility] [place] [address] [place] [address] [facility] [address] [place] [address] Mayank Allen MD [address] [facility] [address] [place] [address] Health Maintenance Due Date Last [...] 2004 OSTEOPOROSIS SCREENING 09/29/2019 INFLUENZA VACCINE (#1) 2024 RSV VACCINE (60+ or ) (1 - 1-dose 75+ series) 2029 Procedures Procedure Name Priority Date/Time Associated Diagnosis Comments IRON, TIBC, AND PERCENT SATURATION Routine 11/15/2024 3:08 PM CDT COMPREHENSIVE METABOLIC PANEL Routine 11/15/2024 2:13 PM CDT from Last 3 Months Results * IRON, TIBC, AND PERCENT SATURATION (11/15/2024 3:08 PM CDT) Blood Mayank Allen MD CHEMISTRY ORDERABLES Final Resu lt * COMPREHENSIVE METABOLIC PANEL (11/15/2024 2:13 PM CDT) Blood Mayank Allen MD CHEMISTRY ORDERABLES Final Resu lt from Last 3 Months Insurance [facility] Address: [place] [address] Care Teams Heat Transfer Technician Relationship Specialty Start Date End Date Lisa Ortiz MD [address] [place] [phone] PCP - General Family Practice 09/29/23
[2024-12-13 11:40] VITALS: BP 126/43; PULSE 60; RESP 18; TEMP 36.6; O2SAT 100
--- NOTE | 2024-12-13 12:38 | WPDANESEPPF ---
Anes - Initial Pre Proc Eval Procedure: Operation Date: 12/13/24 12:30 Proposed Procedures p Esophagogastroduodenoscopy EGD - Julien Hutton MD Date/Time: 12/13/24 12:38 Surgeon: Julien Hutton MD Pre Op Diagnosis: Right upper quadrant pain Patient Data Age: 69 Gender: F Height: 1.57 m Weight: 69 kg Last Vital Signs Temp 97.9 F 12/13/24 11:40 Pulse 60 12/13/24 11:40 Resp 18 12/13/24 11:40 BP 126/43 L 12/13/24 11:40 Pulse Ox 100 12/13/24 11:40 O2 Del Method Room Air 12/13/24 11:40 Allergies Allergy/AdvReac Type Severity Reaction Status Date / Time alcohol Allergy Intermediate swelling & Verified 12/11/24 15:02 redness Sulfa (Sulfonamide Allergy Mild Unknown Verified 12/11/24 15:02 Antibiotics) Home Medications ?Medication ?Instructions ?Recorded ?Confirmed ?Type multivitamin 1 tablet PO DAILY 01/03/19 12/13/24 History timolol 0.5 % eye drops 1 drp EACH EYE Q12H 02/24/23 12/13/24 History fluticasone propionate 50 2 spray intranasal DAILY PRN 09/08/23 12/11/24 Rx mcg/actuation nasal allergy symptoms #16 grams spray,suspension aspirin 81 mg capsule 81 mg PO DAILY 08/27/24 12/13/24 History cetirizine 10 mg capsule (All Day 10 mg PO DAILY PRN allergy symptoms 08/27/24 12/13/24 History Allergy (cetirizine)) rosuvastatin 5 mg tablet 5 mg PO DAILY #90 tabs 11/27/24 12/13/24 Rx famotidine 40 mg tablet 40 mg PO DAILY 12/03/24 12/13/24 History Patient hx anesthesia problems: none Family hx anesthesia problems: none Results Review: All pre-operative results and documents have been reviewed as part of the pre-operative evaluation. 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 Hyperlipidemia, active on her feet, no cp or sob. Informed Consent: The patient's anesthetic plan and its attendant risks and benefits were discussed with the patient/family/POA. Questions were solicited and answers provided to the satisfaction of the patient/family/POA.
--- NOTE | 2024-12-13 12:43 | SUR.PREOP ---
Patient notified of delay in cases. Offered restroom, warm blanket, and repositioning. Declined at this time. Will monitor.
[2024-12-13] MEDS: LACTATED RINGERS 1,000 ML 150 ML IV CONT (13:23)
[2024-12-13] MEDS: SIMETHICONE ORAL SUSPENSION 20 MG/0.3 ML 30 ML BOTTLE 1.8 ML PO (13:24)
--- NOTE | 2024-12-13 13:35 | S_PTH ---
PATIENT: Glenys Rivero LOC: [facility] U#:[id number] AGE/SX: 69/F ROOM: RE12/13/[address]: Julien Hutton MD : 1955 BED: DIS: 12/13/2024 SPEC #: [id number] RECD: 12/13/24 14:40 STATUS: ELYSSA REQ #: [id number] HARPER: 12/13/24 13:[address]: Julien Hutton DEPT: [place] Surgical RECD BY: Marija Concepcion ENTERED: 12/13/24 14:40 SP TYPE: Surgical OTHR DR: Ana Bass PA-C Tissues: A - Gastric Biopsy B - Gastric Biopsy Procedures: Hematoxylin and Eosin Stain Gross and Microscopic Level 4
--- NOTE | 2024-12-13 13:35 | PM.IMHP ---
H&P: HPI History of Present Illness Date/Time: 12/13/24 13:35 Chief Complaint: Epigastric pain Narrative: Patient referred for EGD for atypical and intermittent/migratory epigastric pain. Review of Systems Review of Systems: All systems reviewed & are unremarkable except as noted in HPI and below PMFSH Past Medical History Medical History Elevated liver enzymes Hepatic steatosis Slow transit constipation Hyperlipidemia Surgical History Surgical History History of incision and drainage cyst on right shoulder Family History Family History Father Family history of lung cancer Social History Social History Smoking status: Never smoker Second hand tobacco smoke exposure: No Alcohol intake: never Substance use: never Substance use type: does not use Living arrangements: with family Additional living arrangements comments: 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 Gender identity (if verbalized by the patient): Female Spiritual care concerns: No Meds Home Medications and Allergies Home Medications ?Medication ?Instructions ?Recorded ?Confirmed ?Type multivitamin 1 tablet PO DAILY 01/03/19 12/13/24 History timolol 0.5 % eye drops 1 drp EACH EYE Q12H 02/24/23 12/13/24 History fluticasone propionate 50 2 spray intranasal DAILY PRN 09/08/23 12/11/24 Rx mcg/actuation nasal allergy symptoms #16 grams spray,suspension aspirin 81 mg capsule 81 mg PO DAILY 08/27/24 12/13/24 History cetirizine 10 mg capsule (All Day 10 mg PO DAILY PRN allergy symptoms 08/27/24 12/13/24 History Allergy (cetirizine)) rosuvastatin 5 mg tablet 5 mg PO DAILY #90 tabs 11/27/24 12/13/24 Rx famotidine 40 mg tablet 40 mg PO DAILY 12/03/24 12/13/24 History Allergies Allergy/AdvReac Type Severity Reaction Status Date / Time alcohol Allergy Intermediate swelling & Verified 12/11/24 15:02 redness Sulfa (Sulfonamide Allergy Mild Unknown Verified 12/11/24 15:02 Antibiotics) Vital Signs Vital Signs - 24 hr 12/13/24 11:40 Temperature 97.9 F Pulse Rate 60 Respiratory Rate 18 Blood Pressure 126/43 L Pulse Oximetry 100 Oxygen Delivery Room Air Exam Const: General: cooperative and healthy appearing Resp: Effort & Inspection: normal respiratory effort and able to speak in complete sentences Auscultation: clear to auscultation bilaterally Cardio: Rate: regular rate Rhythm: regular rhythm GI: Inspection: normal to inspection GI Palp: No No hepatosplenomegaly present Auscultation: normal bowel sounds Rectal Exam: deferred Skin: General skin exam: normal color Psych: Appearance: grossly normal Mental Status: mental status grossly normal Assessment and Plan Assessment and plan (1) Abdominal pain: Code(s): R10.9 - Unspecified abdominal pain Status: Acute Assessment and Plan: The patient is deemed a good candidate for the procedure. Consent signed. Will proceed.
[2024-12-13 13:37] VITALS: BP 104/54; PULSE 61; RESP 20; O2SAT 97
[2024-12-13 13:47] VITALS: BP 122/56; PULSE 61; RESP 21; O2SAT 97
[2024-12-13 13:57] VITALS: BP 124/62; PULSE 62; RESP 21; O2SAT 98
== END 2024-12-13 14:10 | disposition home or self-care (01) ==
PROVIDERS: PCP Student in an Organized Health Care Education/Training Program; Referring Provider Nurse Practitioner Family; Visit Provider Internal Medicine Gastroenterology
PROC: 0DJ08ZZ Inspection of Upper Intestinal Tract, Via Natural or Artificial Opening Endoscopic (ICD-10-PCS; CPT 43239; principal; 2024-12-13 12:30)
DX: R10.84 Generalized abdominal pain (principal)
CPT/HCPCS: 43239; 88305; J2003; J2704; J7120